=== PATIENT | female | born 1945 | race Caucasian/White ===

== ENCOUNTER 2018-01-25 11:24 | Emergency (ER) | payer MEDICARE, OTHER ==
[2018-01-25 11:42] VITALS: BP 151/69
--- NOTE | 2018-01-25 12:38 | ED Physician Documentation ---
Upper Extremity Injury - HPI Stated Complaint: L wrist pain Chief Complaint: Upper Extremity Injury Onset: just prior to arrival Where: home (bathroom) Context: fall Further Comments: yes (72 year old female patient presents with left wrist deformity after a fall from standing. Slipped in bathroom while cleaning the toilet. Patient c/o severe pain with movement of fingers.) - ROS CONST: no problems CVS/RESP: none NEURO: none MS/SKIN/LYMPH: none GI/: denies: nausea, vomiting - PAST HX Past History: Rt handed, other (osteoporosis, ataxia - uses cane; left ankle ORIF, trigger finger release. ) Allergies/Adverse Reactions: Allergies Allergy/AdvReac Type Severity Reaction Status Date / Time cefuroxime axetil Allergy Verified 01/25/18 11:42 [From Ceftin] clindamycin Allergy Verified 01/25/18 11:42 Home Medications: Ambulatory Orders Medication Instructions Recorded Alendronate Sodium 70 mg PO WEEKLY AT 0600 07/20/14 Citalopram Hydrobromide [Celexa] 10 mg PO DAILY 07/20/14 Simvastatin [Simvastatin] 20 mg PO DAILY 07/20/14 - SOCIAL HX Smoking History: non-smoker - FAMILY HX Family History: denies: none - VITAL SIGNS Vital Signs: Vital Signs Temp Pulse Resp BP Pulse Ox 98.1 F 80 16 151/69 98 01/25/18 14:05 01/25/18 14:05 01/25/18 14:05 01/25/18 14:05 01/25/18 14:05 - REVIEWED ASSESSMENTS Nursing Assessment Reviewed: Yes Vitals Reviewed: Yes Progress - Progress Progress: 1233 Call to [facility] for orthopedic consult. [address] Florez - orders to transfer to ER for closed reduction; keep NPO Ulnar gutter splint applied; finger cool to touch, prompt cap refill, patient denies numbness; Medicated for pain with Morphine IM. Patient refused ambulance transfer. Will send POV with . ED Results Lab/Radiology - Radiology Radiology Impressions: Examination: Plain film left wrist History: LEFT WRIST, PAIN IN LEFT WRIST AFTER FALL TODAY (Hx) Comparison exams: None available Findings: 3 views the left wrist demonstrates fracture with posterior angulation of the distal radius. Ulna styloid avulsion. Carpal bone degenerative changes. Soft tissue swelling. Impression: Distal radial and ulna styloid fracture. Electronically signed on Jan 25, 2018 12:23:57 PM CDT by: Camron Marino - Orders Orders: ED Orders Category Date Time Status Sling to Affected Extremity 1T Care 01/25/18 12:17 Active Ulnar Gutter Splint 1T Care 01/25/18 12:17 Active WRIST 3 VIEWS OR MORE [RAD] Stat Exams 01/25/18 Ordered Morphine Sulfate Med 01/25/18 13:13 Discontinued 5 mg IM NOW ONE Upper Extremity Injury Physic - Physical Exam General Appearance: moderate distress Hand: normal inspection, non-tender, no evidence of injury, normal ROM Wrist: normal inspection (right only), deformity (left wrist), limited ROM ( left wrist), pain (left wrist), soft tissue tenderness (left wrist) Elbow/Forearm: normal inspection, non-tender, no evidence of injury, normal ROM Shoulder: normal inspection, non-tender, no evidence of injury, normal ROM Neuro/Vascular/Tendon: no vascular compromise, motor nml, sensation nml, ROM nml Skin: warm,dry Resp/CVS: chest non-tender, breath sounds nml, heart sounds nml, no resp. distress, lungs clear, reg. rate & rhythm Abdomen: non-tender, pelvis stable Discharge Clincal Impression: Ulna styloid fracture, closed Qualifiers: Encounter type: initial encounter Fracture alignment: displaced Laterality: left Qualified Code(s): S52.612A - Displaced fracture of left ulna styloid process, initial encounter for closed fracture Distal radius fracture, left Qualifiers: Encounter type: initial encounter Fracture type: closed Fracture morphology: unspecified fracture morphology Qualified Code(s): S52.502A - Unspecified fracture of the lower end of left radius, initial encounter for closed fracture Condition: Stable Disposition: 02 XFER SHT-TRM HOSP Decision to Admit: NO Decision Time: 14:00
[2018-01-25] MEDS ORDERED: MORPHINE SULFATE 10 MG/ML CARTRIDGE IM ONE (13:13)
--- NOTE | 2018-01-25 17:51 | Diagnostic Imaging Report ---
JARED HAILE (DRY KILN BURNER) - ER [facility] [address] [address] Report Submission Date: Jan 25, 2018 12:23:57 PM CDT Patient Study Name: NAHUM WOMACK Date: Jan 25, 2018 12:00:16 PM CDT Modality Type: DX Gender: F Description: UPPER EXTREMITY : 43 Institution: [facility] Physician: JARED HAILE (DRY KILN BURNER) - ER Examination: Plain film left wrist History: LEFT WRIST, PAIN IN LEFT WRIST AFTER FALL TODAY (Hx) Comparison exams: None available Findings: 3 views the left wrist demonstrates fracture with posterior angulation of the distal radius. Ulna styloid avulsion. Carpal bone degenerative changes. Soft tissue swelling. Impression: Distal radial and ulna styloid fracture. Electronically signed on Jan 25, 2018 12:23:57 PM CDT by: Camron DRAPER
== END 2018-01-25 14:05 | disposition short-term general hospital (02) ==
LOC: ED 11:24
DX: S52.612A Displaced fracture of left ulna styloid process, initial encounter for closed fracture (principal); S52.502A Unspecified fracture of the lower end of left radius, initial encounter for closed fracture; W01.0XXA Fall on same level from slipping, tripping and stumbling without subsequent striking against object, initial encounter; Y93.E9 Activity, other interior property and clothing maintenance; Y92.002 Bathroom of unspecified non-institutional (private) residence as the place of occurrence of the external cause; Y99.9 Unspecified external cause status
CPT/HCPCS: 73110; J2270; 96372; 99284

== ENCOUNTER 2018-03-22 13:50 | Outpatient (CLI) | payer MEDICARE, OTHER ==
--- NOTE | 2018-03-22 17:36 | Diagnostic Imaging Report ---
JULIANN ANTOINE (AUTOMATIC FABRIC CUTTER) - OP [facility] [address] [facility].[address] [address] Report Submission Date: March 22, 2018 3:59:23 PM CDT Patient Study Name: NAHUM WOMACK Date: March 22, 2018 2:22:17 PM CDT Modality Type: DX Gender: F Description: SPINE : 43 Institution: [facility] Physician: JULIANN ANTOINE (KRISTINE) - OP Examination: Plain film lumbar spine History: L-SPINE, LOW BACK PAIN AFTER FALL 2-3 DAYS AGO (Hx) Findings: 3 views of the lumbar spine demonstrate normal height. No anterior compression. Minimal L4/L5 listhesis. Scattered osteophytes. Facet degenerative changes. No soft tissue abnormalities. Impression: Degenerative changes. No compression deformity. Electronically signed on March 22, 2018 3:59:23 PM CDT by: Camron DRAPER
--- NOTE | 2018-03-22 17:37 | Diagnostic Imaging Report ---
JULIANN ANTOINE (VACUUM APPLICATOR OPERATOR) - OP [facility] [address] [facility].[address] [address] Report Submission Date: March 22, 2018 3:57:56 PM CDT Patient Study Name: NAHUM WOMACK Date: March 22, 2018 2:23:48 PM CDT Modality Type: DX Gender: F Description: SPINE : 43 Institution: [facility] Physician: JULIANN ANTOINE (KRISTINE) - OP Examination: Plain film thoracic spine History: T-SPINE, MID BACK PAIN AFTER FALL X2-3 DAYS AGO (Hx) Findings: 3 views of the thoracic spine demonstrate normal height. No anterior compression. Scattered osteophytes. Minimal kyphosis. No soft tissue abnormalities. Impression: Degenerative changes and kyphosis. No compression deformity. Electronically signed on March 22, 2018 3:57:56 PM CDT by: Camron DRAPER
== END 2018-03-22 13:52 ==
LOC: RAD 13:50
PROVIDERS: ATTEND Nurse Practitioner Family
DX: M54.6 Pain in thoracic spine (principal); M54.5 Low back pain; W19.XXXA Unspecified fall, initial encounter; Y93.9 Activity, unspecified; Y92.9 Unspecified place or not applicable; Y99.9 Unspecified external cause status
CPT/HCPCS: 72072; 72100

== ENCOUNTER 2018-08-24 11:43 | Emergency (ER) | payer MEDICARE, OTHER ==
[2018-08-24 11:56] VITALS: BP 120/61
--- NOTE | 2018-08-24 12:35 | Diagnostic Imaging Report ---
COTY DODSON [facility] [address] [facility] [address] [address] Report Submission Date: Aug 24, 2018 12:34:12 PM CDT Patient Study Name: NAHUM WOMACK Date: Aug 24, 2018 11:58:44 AM CDT Modality Type: DX Gender: F Description: SPINE : 43 Institution: [facility] Physician: COTY DODSON Lumbar spine History: Back pain status post fall AP and lateral projections of the lumbar spine demonstrate a stimulating lead projecting over the mid sacrum. There is multilevel facet arthropathy without spondylolisthesis or spondylolysis. Vertebral body height and intervertebral disc space height is maintained. Impression: No acute osseous abnormality. Multilevel facet arthropathy. Electronically signed on Aug 24, 2018 12:34:12 PM CDT by: Omaira DRAPER
--- NOTE | 2018-08-24 12:37 | Diagnostic Imaging Report ---
COTY DODSON [facility] [address] [facility] [address] [address] Report Submission Date: Aug 24, 2018 12:35:59 PM CDT Patient Study Name: NAHUM WOMACK Date: Aug 24, 2018 11:57:26 AM CDT Modality Type: DX Gender: F Description: SPINE : 43 Institution: [facility] Physician: COTY DODSON Thoracic spine History: Status post fall with back pain AP, lateral and swimmer's views of the thoracic spine demonstrate mild to moderate disc space narrowing at multiple levels of the thoracic spine. Pedicles are intact. No acute osseous abnormalities are noted. Impression: Mild to moderate disc space narrowing is present at multiple levels of the thoracic spine. No acute osseous abnormality. Electronically signed on Aug 24, 2018 12:35:59 PM CDT by: Omaira DRAPER
--- NOTE | 2018-08-24 12:37 | Diagnostic Imaging Report ---
COTY DODSON [facility] [address] [facility] [address] [address] Report Submission Date: Aug 24, 2018 12:37:13 PM CDT Patient Study Name: NAHUM WOMACK Date: Aug 24, 2018 12:00:20 PM CDT Modality Type: DX Gender: F Description: PELVIS : 43 Institution: [facility] Physician: COTY DODSON AP pelvis History: Status post fall AP view of the pelvis demonstrates the presence of a neurostimulating device projecting over the right iliac crest with a lead projecting over the mid sacrum. SI joints are intact. No acute osseous abnormalities are noted. There are no significant degenerative findings. Impression: No osseous abnormality. Neurostimulating device as described. Electronically signed on Aug 24, 2018 12:37:13 PM CDT by: Omaira DRAPER
--- NOTE | 2018-08-24 12:38 | Diagnostic Imaging Report ---
COTY DODSON [facility] [address] [facility] [address] [place] [address]. [address] Report Submission Date: Aug 24, 2018 12:38:03 PM CDT Patient Study Name: NAHUM WOMACK Date: Aug 24, 2018 12:01:47 PM CDT Modality Type: DX Gender: F Description: PELVIS : 43 Institution: [facility] Physician: COTY DODSON Right hip History: Status post fall AP and frogleg lateral projections of the right hip demonstrate no osseous abnormalities. There is no evidence for acute fracture. There are no significant degenerative findings. Impression: Unremarkable right hip. Electronically signed on Aug 24, 2018 12:38:03 PM CDT by: Omaira DRAPER
--- NOTE | 2018-08-24 12:39 | ED Physician Documentation ---
Fall - HPI Stated Complaint: Fall Chief Complaint: Fall Additional Information: Patient states she fell backward in her kitchen 2 days ago landing on her right buttocks. Since that time she has had pain in her low back and right hip. She has a bladder stimulator and she states she landed on the implanted unit. She rate her pain 8/10 at times when she moves a certain way. She denies striking her head or loss of consciousness. Onset: days ago (2) Where: home Context: lost balance r: moderate Associated Symptoms:: no loss of consciousness Location of Pain/Injury: lower back Injury to Right Extremity: hip Injury to Left Extremity: none Further Comments: no - ROS CONST: denies: fever NEURO: denies: dizziness MS/SKIN/LYMPH: denies: weakness EYES/ENT: denies: problems with vision CVS/RESP: denies: chest pain, shortness of breath GI/: denies: nausea, vomiting - PAST HX Past History: other (hereditary ataxia) Allergies/Adverse Reactions: Allergies Allergy/AdvReac Type Severity Reaction Status Date / Time cefuroxime axetil Allergy Verified 08/24/18 11:56 [From Ceftin] clindamycin Allergy Verified 08/24/18 11:56 Home Medications: Ambulatory Orders Medication Instructions Recorded Citalopram Hydrobromide [Celexa] 10 mg PO DAILY 07/20/14 Simvastatin 20 mg PO DAILY 07/20/14 - SOCIAL HX Smoking History: non-smoker Alcohol Use: none Drug Use: none - FAMILY HX Family History: no significant history - VITAL SIGNS Vital Signs: Vital Signs Temp Pulse Resp BP Pulse Ox 88 15 120/61 98 08/24/18 11:45 08/24/18 11:45 08/24/18 11:45 08/24/18 11:45 - REVIEWED ASSESSMENTS Nursing Assessment Reviewed: Yes Vitals Reviewed: Yes ED Results Lab/Radiology - Radiology Radiology Impressions: Thoracic spine History: Status post fall with back pain AP, lateral and swimmer's views of the thoracic spine demonstrate mild to moderate disc space narrowing at multiple levels of the thoracic spine. Pedicles are intact. No acute osseous abnormalities are noted. Impression: Mild to moderate disc space narrowing is present at multiple levels of the thoracic spine. No acute osseous abnormality. Electronically signed on Aug 24, 2018 12:35:59 PM CDT by: Omaira Betts Lumbar spine History: Back pain status post fall AP and lateral projections of the lumbar spine demonstrate a stimulating lead projecting over the mid sacrum. There is multilevel facet arthropathy without spondylolisthesis or spondylolysis. Vertebral body height and intervertebral disc space height is maintained. Impression: No acute osseous abnormality. Multilevel facet arthropathy. Electronically signed on Aug 24, 2018 12:34:12 PM CDT by: Omaira Betts Right hip History: Status post fall AP and frogleg lateral projections of the right hip demonstrate no osseous abnormalities. There is no evidence for acute fracture. There are no significant degenerative findings. Impression: Unremarkable right hip. Electronically signed on Aug 24, 2018 12:38:03 PM CDT by: Omaira Betts AP pelvis History: Status post fall AP view of the pelvis demonstrates the presence of a neurostimulating device projecting over the right iliac crest with a lead projecting over the mid sacrum. SI joints are intact. No acute osseous abnormalities are noted. There are no significant degenerative findings. Impression: No osseous abnormality. Neurostimulating device as described. Electronically signed on Aug 24, 2018 12:37:13 PM CDT by: Omaira Betts - Orders Orders: ED Orders Category Date Time Status L SPINE 2 OR 3 VIEWS [RAD] Stat Exams 08/24/18 Completed PELVIS AP 1 OR 2 VIEWS [RAD] Stat Exams 08/24/18 Taken RT HIP 2VIEW COMPLETE [RAD] Stat Exams 08/24/18 Taken T SPINE 3 VIEWS [RAD] Stat Exams 08/24/18 Completed Fall Physical Exam - Physical Exam General Appearance: no acute distress, alert. No: c-collar [employer] Head: no obvious injury. No: non-tender Neck: non-tender, painless ROM Eye: SUMEET ENT: nml external inspection, no dental injury Resp/CVS: chest non-tender, breath sounds nml, no resp. distress Abdomen: soft, normal bowel sounds, non-tender Neuro: oriented x3, motor nml Skin: color nml Back: normal inspection, other (tenderness over right posterior iliac crest. No evidence of trauma). No: no CVA tenderness Extremities: pelvis stable, hips non-tender, no pedal edema, bony point- tenderness (tenderness over right posterior iliac crest. No evidence of trauma) Joint: joints nml, nml ROM - Miguel Ángel Coma Score Eyes Open: Spontaneous Speech: Oriented Motor: Obeys Commands Discharge Clincal Impression: Fall Qualifiers: Encounter type: initial encounter Qualified Code(s): W19.XXXA - Unspecified fall, initial encounter Referrals: Heike Correa MD [Primary Care Provider] - 2 Days Additional Instructions: Take Aleve and/or Tylenol for pain. Use ice as needed. Follow up with PCP within a week. Condition: Stable Disposition: 01 HOME, SELF-CARE Decision to Admit: NO Date of Decison to Admit: 08/24/18 Decision Time: 12:51
== END 2018-08-24 12:53 | disposition home or self-care (01) ==
LOC: ED 11:43
DX: M54.9 Dorsalgia, unspecified (principal); W19.XXXA Unspecified fall, initial encounter; Y92.010 Kitchen of single-family (private) house as the place of occurrence of the external cause; Y93.9 Activity, unspecified; Y99.9 Unspecified external cause status
CPT/HCPCS: 72072; 72100; 72170; 73502; 99284